=== PATIENT | male | born 1980 | race Caucasian/White ===

== ENCOUNTER 2016-10-04 09:43 | Outpatient (CLI) | payer OTHER | END 2016-10-04 09:44 | disposition home or self-care (01) | LOC: SC 09:43 | PROVIDERS: ATTEND Specialist | DX: G47.8 Other sleep disorders (principal); G47.10 Hypersomnia, unspecified; R06.83 Snoring | CPT/HCPCS: 99204; 99212 ==

== ENCOUNTER 2016-10-19 21:56 | Outpatient (CLI) | payer OTHER | END 2016-10-19 21:57 | disposition home or self-care (01) | LOC: SC 21:56 | PROVIDERS: ATTEND Specialist | DX: G47.33 Obstructive sleep apnea (adult) (pediatric) (principal) | CPT/HCPCS: 95810 ==

== ENCOUNTER 2016-11-14 15:13 | Outpatient (CLI) | payer OTHER | END 2016-11-14 15:14 | disposition home or self-care (01) | LOC: SC 15:13 | PROVIDERS: ATTEND Internal Medicine Pulmonary Disease | DX: G47.61 Periodic limb movement disorder (principal) | CPT/HCPCS: 99212; 99213 ==